=== PATIENT | female | born 1950 | race Caucasian/White ===

== ENCOUNTER → 2016-06-20 | Outpatient (CLI) | payer BC ==
--- NOTE | 2016-06-21 09:59 | CR ---
EXAM DATE: 06/20/16 PATIENT'S AGE: 66 Patient: SANDY MIN Facility: [place], [place] Site . Site : 1950 Study: XRay Extremity Right [id number]/24/2017 11:31:46 AM Ordering Physician: Kristen Henriquez Final Report: HISTORY: Pain in right hip. Findings: AP and frogleg views of the pelvis demonstrates marked decreased joint space of the right hip with acetabular sclerosis and spurring. Spurring is seen off the right femoral head as well. Left hip joint space appears preserved. No acute fracture or dislocation. Impression: Moderate to marked degenerative changes of the right hip. Dictated by Lavinia Rosa MD @ Jun 21 2016 12:45AM (Electronic Signature) Report Signed by Proxy and Original Signed Document filed in the Medical Record. AMISH
== END ==
LOC: MW.CHORTHO 07:37
PROVIDERS: ATTEND Orthopaedic Surgery
DX: M25.551 Pain in right hip (principal)
CPT/HCPCS: 73502-26-RT; 73502-RT

== ENCOUNTER 2016-09-19 09:19 | Inpatient (IN) | payer BC ==
[~2016-09-19 09:19] MED LIST: Sodium Chloride 0.9% 10 ML Syringe FLUSH PRN; Sodium Chloride 0.9% 2.5 ML Syringe FLUSH PRN; ceFAZolin 2 GM in Premix Bag 1 BAG IV ONE
[2016-09-19] MEDS: Lactated Ringers 1,000 ML IV SCH ×2 (10:49→20:00)
[2016-09-19] MEDS ORDERED: Lidocaine 2% 5 ML SDV ONE (11:34)
[2016-09-19] MEDS ORDERED: ePHEDrine 50 MG/ML SDV ONE (11:35)
[2016-09-19] MEDS ORDERED: fentaNYL 250 MCG/5 ML SDV ONE (11:35)
[2016-09-19] MEDS ORDERED: Midazolam 1 MG/ML 2 ML SDV ONE (11:35)
[2016-09-19] MEDS ORDERED: Neostigmine Methylsulfate 1 MG/ML 5 ML Syringe ONE (11:35)
[2016-09-19] MEDS ORDERED: Ondansetron 4 MG/2 ML SDV ONE (11:35)
[2016-09-19] MEDS ORDERED: Propofol 200 MG/20 ML SDV ONE ×2 (11:35→14:45)
[2016-09-19] MEDS ORDERED: fentaNYL 100 MCG/2 ML SDV ONE (11:38)
--- NOTE | 2016-09-19 12:06 | PCM.PREANE ---
Preanesthetic Assessment - Procedure Proposed Procedure: Right hip arthroplasty - Anesthesia/Transfusion/Family Hx Anesthesia History: Prior Anesthesia Without Reaction Family History of Anesthesia Reaction: No Transfusion History: No Prior Transfusion(s) Intubation History: Unknown - Review of Systems General: No Symptoms Pulmonary: No Symptoms Cardiovascular: Other (HTN - treated with metoprolol and lisinopril) Gastrointestinal: No Symptoms Neurological: Gait Disturbance (due to pain in right hip) Other: Reports: None - Physical Assessment NPO Status Date: 09/18/16 NPO Status Time: 23:00 O2 Sat by Pulse Oximetry: 96 Respiratory Rate: 16 Vital Signs: Last Vital Signs Temp 98.4 F 09/19/16 10:47 Pulse 57 L 09/19/16 10:47 Resp 16 09/19/16 10:47 BP 147/66 H 09/19/16 10:47 Pulse Ox 96 09/19/16 10:47 Height: 5 ft 6 in Weight: 230 lb ASA Class: 3 Mental Status: Alert & Oriented x3 Airway Class: Mallampati = 1 Dentition: Reports: Normal Dentition, [place](s) (uppers) Thyro-Mental Finger Breadths: 3 Mouth Opening Finger Breadths: 3 ROM/Head Extension: Full Lungs: Clear to Auscultation, Normal Respiratory Effort Cardiovascular: Regular Rate, Regular Rhythm, No Murmurs - Lab Values: Laboratory Last Values Blood Type AB POSITIVE 09/19/16 10:47 Antibody Screen NEGATIVE 09/19/16 10:47 - Allergies Allergies/Adverse Reactions: Allergies Allergy/AdvReac Type Severity Reaction Status Date / Time fluconazole [From Diflucan] Allergy Hives Verified 06/28/13 17:11 - Blood Blood Available: Yes Product(s) Available: PRBC (T and S) - Anesthesia Plan Pre-Op Medication Ordered: None Beta Marcella: Metoprolol Med Last Dose Date: 09/19/16 Med Last Dose Time: 08:00 - Acknowledgements Anesthesia Type Planned: Spinal (with attendant sedation; possible LMA general) Pt an Appropriate Candidate for the Planned Anesthesia: Yes Alternatives and Risks of Anesthesia Discussed w Pt/Guardian: Yes Pt/Guardian Understands and Agrees with Anesthesia Plan: Yes Additional Comments: family members present with discussion and exam. 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: Musculoskeletal History: Reports: Arthritis, Back Pain, Chronic Other Musculoskeletal History: jani hip pain Endocrine/Metabolic History: Reports: Obesity/BMI 30+ - Past Surgical History Head Surgeries/Procedures: Reports: None HEENT Surgical History: Reports: Oral Surgery Other HEENT Surgeries/Procedures: wisdom teeth extraction Musculoskeletal Surgical History: Reports: Other (See Below) Other Musculoskeletal Surgeries/Procedures:: nodule removed from left thumb - SUBSTANCE USE Smoking Status *Q: Never Smoker Second Hand Smoke Exposure: No Days Per Week of Alcohol Use: 2 Number of Drinks Per Day: 1 Total Drinks Per Week: 2 Recreational Drug Use History: No - HOME MEDS Home Medications: Home Meds Calcium Carbonate [Calcium] 1 tab PO DAILY 09/14/16 [History] Lisinopril/Hydrochlorothiazide [Lisinopril-Hctz 20-25 mg Tab] 1 tab PO DAILY [History] Metoprolol Succinate 50 mg PO DAILY 09/14/16 [History] [place]-3/DHA/Epa/Fish Oil [[place]-3 Fish Oil 1,000 MG Sfgl] 1 tab PO DAILY [History] traMADol HCl [Tramadol HCl] 50 mg PO ASDIRECTED PRN 09/14/16 [History] - CURRENT (IN HOUSE) MEDS Current Meds: Current Medications Lactated Ringer's (Ringers, Lactated) 1,000 mls @ 125 mls/hr IV ASDIRECTED FILI Last Admin: 09/19/16 10:49 Dose: 125 mls/hr Sodium Chloride (Saline Flush) 10 ml FLUSH ASDIRECTED PRN PRN Reason: Keep Vein Open Sodium Chloride (Saline Flush) 2.5 ml FLUSH ASDIRECTED PRN PRN Reason: Keep Vein Open Discontinued Medications Ephedrine Sulfate (Ephedrine Sulfate) Confirm Administered Dose 50 mg .ROUTE .STK-MED ONE Stop: 09/19/16 11:36 Fentanyl (Sublimaze) Confirm Administered Dose 250 mcg .ROUTE .STK-MED ONE Stop: 09/19/16 11:36 Fentanyl (Sublimaze) Confirm Administered Dose 100 mcg .ROUTE .STK-MED ONE Stop: 09/19/16 11:39 Glycopyrrolate () Confirm Administered Dose 1 mg .ROUTE .STK-MED ONE Stop: 09/19/16 11:36 Cefazolin Sodium/Dextrose 2 gm (/ Premix) 50 mls @ 100 mls/hr IV ONETIME ONE Stop: 09/19/16 09:29 Lidocaine (Xylocaine-Mpf 2%) Confirm Administered Dose 10 ml .ROUTE .STK-MED ONE Stop: 09/19/16 11:35 Midazolam HCl (Versed 1 Mg/Ml) Confirm Administered Dose 2 mg .ROUTE .STK-MED ONE Stop: 09/19/16 11:36 Neostigmine Methylsulfate (Neostigmine) Confirm Administered Dose 5 mg .ROUTE .STK-MED ONE Stop: 09/19/16 11:36 Ondansetron HCl (Zofran) Confirm Administered Dose 4 mg .ROUTE .STK-MED ONE Stop: 09/19/16 11:36 Propofol (Diprivan 20 Ml) Confirm Administered Dose 400 mg .ROUTE .STK-MED ONE Stop: 09/19/16 11:36 Rocuronium [place] (Zemuron) Confirm Administered Dose 50 mg .ROUTE .STK-MED ONE Stop: 09/19/16 11:36 Tranexamic Acid (Cyklokapron) Confirm Administered Dose 2,000 mg .ROUTE .STK- MED ONE Stop: 09/16/16 12:48
[2016-09-19] MEDS ORDERED: Dermabond Prineo 1 Tube TOP ONE (14:56)
--- NOTE | 2016-09-19 15:41 | PCM.OPNOTE ---
- General Post-Op/Procedure Note Date of Surgery/Procedure: 09/19/16 Operative Procedure(s): right anterior total hip arthroplasty Findings: severe OA Pre Op Diagnosis: right hip osteoarthritis Post-Op Diagnosis: same Anesthesia Technique: General ET Tube, Spinal Primary Surgeon: Aram Henriquez [employer] Superintendent: Charlotte Thomson Pathology: femoral head EBL in mLs: 500 Complications: none Condition: Good
[2016-09-19] MEDS ORDERED: Aluminum Hydroxide/Magnesium Hydroxide/Simethicone Susp 30 ML Cup PO PRN (15:58)
[2016-09-19] MEDS ORDERED: Bisacodyl 10 MG Supp RECTAL PRN (15:58)
[2016-09-19] MEDS ORDERED: diphenhydrAMINE 25 MG Cap PO PRN (15:58)
[2016-09-19] MEDS: Ondansetron 4 MG/2 ML SDV IV PRN ×2 (16:33→22:26)
--- NOTE | 2016-09-19 16:50 | CR ---
EXAMINATION: Right hip HISTORY: SIMONE COMPARISON: 06/20/2016 TECHNIQUE: 3 fluoroscopic images provided FINDINGS/IMPRESSION: Operative control films demonstrate placement of a right total hip hardware in good position and alignment.
[2016-09-19] MEDS: Acetaminophen/HYDROcodone 325-5 MG Tab PO PRN ×2 (17:49→22:25)
[2016-09-19] MEDS: Morphine 10 MG/ML Syringe IVPUSH PRN ×2 (18:00→20:40)
[2016-09-19] MEDS: oxyCODONE ER 20 MG TAB.ER PO PRN (19:58)
[2016-09-19] MEDS: Docusate Sodium 100 MG Cap PO SCH (20:41)
[2016-09-19] MEDS: ceFAZolin 2 GM in Premix Bag 1 BAG IV SCH (20:45)
[2016-09-19] MEDS ORDERED: Promethazine 25 MG/ML SDV ONE (20:51)
[2016-09-19] MEDS: Promethazine 25 MG/ML SDV IM PRN (20:54)
[2016-09-19] MEDS ORDERED: Diazepam 2 MG Tab PO ONE (21:43)
[2016-09-20] MEDS: Acetaminophen/HYDROcodone 325-5 MG Tab PO PRN ×5 (03:10→21:56)
[2016-09-20] MEDS: Promethazine 25 MG/ML SDV IM PRN (03:27)
[2016-09-20] MEDS: Lactated Ringers 1,000 ML IV SCH (04:47)
[2016-09-20] MEDS: ceFAZolin 2 GM in Premix Bag 1 BAG IV SCH (04:48)
[2016-09-20] MEDS: Ondansetron 4 MG/2 ML SDV IV PRN ×2 (05:06→13:13)
--- NOTE | 2016-09-20 06:57 | PCM48HPAN ---
Post Anesthesia Note - EVALUATION WITHIN 48HRS OF ANESTHETIC Vital Signs in Normal Range: Yes Patient Participated in Evaluation: Yes Respiratory Function Stable: Yes Airway Patent: Yes Cardiovascular Function Stable: Yes Hydration Status Stable: Yes Pain Control Satisfactory: Yes Nausea and Vomiting Control Satisfactory: Yes Mental Status Recovered: Yes
--- NOTE | 2016-09-20 06:57 | PCM.POSTAN ---
POST ANESTHESIA ASSESSMENT - MENTAL STATUS Mental Status: Alert, Oriented - RESPIRATORY Respiratory Status: respiratory rate WNL, Airway Patent, O2 Saturation Stable - CARDIOVASCULAR CV Status: Pulse Rate WNL, Blood Pressure Stable - GASTROINTESTINAL GI Status: No Symptoms - POST OP HYDRATION Hydration Status: Adequate & Stable
--- NOTE | 2016-09-20 08:17 | PCM.SN ---
- Free Text/Narrative Note: subjective: She is doing well. has not ambulated yet. Hip pain is better before surgery. she has been having a lot of back pain with pain down her leg which has been most painful. He is tolerating oral well. her pain is now under control Objective: Afebrile, vital signs stable Dressing is clean/dry/intact with no drainage and there is minimal swelling in the thigh and distally He has normal sensation and motor distally with equal leg lengths. Hemoglobin is 10.4 Assessment/plan: postop day #1 right hip replacement - weightbearing as tolerated with physical therapy - Aspirin for DVT prophylaxis -to home when able. She has not had therapy yet and is having significant back pain and difficulty getting up..
[2016-09-20] MEDS ORDERED: Sodium Chloride 0.9% 2.5 ML Syringe FLUSH PRN (08:18)
[2016-09-20] MEDS ORDERED: Sodium Chloride 0.9% 10 ML Syringe FLUSH PRN (08:18)
[2016-09-20] MEDS: Fish Oil/Omega-3 Fatty Acids 1 Gm Cap PO SCH (08:48)
[2016-09-20] MEDS: Calcium Carbonate 500 MG Tab.Chew PO SCH (08:48)
[2016-09-20] MEDS: Metoprolol Succinate 50 MG Tab.ER PO SCH (08:48)
[2016-09-20] MEDS: Lisinopril 10 MG Tab PO SCH (08:49)
[2016-09-20] MEDS: Docusate Sodium 100 MG Cap PO SCH ×2 (08:49→20:36)
[2016-09-20] MEDS: Aspirin 325 MG Tab PO SCH ×2 (08:49→20:36)
[2016-09-20] MEDS: Hydrochlorothiazide 25 MG Tab PO SCH (08:49)
--- NOTE | 2016-09-20 12:45 | PCM.DCSUM1 ---
Discharge Summary - Hospital Course Free Text/Narrative:: patient is admitted for elective right hip replacement Brief History: patient is admitted for elective hip replacement due to failure of conservative treatment - Discharge Data Discharge Date: 09/20/16 Discharge Disposition: Home, Self-Care 01 Condition: Good - Patient Summary/Data Operative Procedure(s) Performed: right anterior total hip arthroplasty Consults: Consultations 09/19/16 15:57 PT Evaluation and Treatment [CONS] Routine Hospital Course: patient underwent uneventful total hip replacement. Postoperatively she was admitted to the floor her pain was controlled her diet was advanced. Her to stay in physical therapy with weightbearing as tolerated. Did well and was discharged home on postoperative day #1 - Patient Instructions Diet: Usual Diet as Tolerated Activity: Apply Ice, As Tolerated, Full Weight Bearing Driving: Do Not Drive Driving, Other: may drive in 2 weeks Showering/Bathing: May Shower Wound/Incision Care: Do NOT Change Dressing Notify Provider of: Fever, Swelling and Redness, Drainage - Discharge Plan Prescriptions/Med Rec: Hydrocodone/Acetaminophen [[place] 7.5-325 Tablet] 1 - 2 tab PO Q4HR PRN #60 tablet PRN Reason: Pain Aspirin [Aspirin EC] 325 mg PO BID #60 tablet. Docusate Sodium [Colace] 100 mg PO BID #30 cap Home Medications: Home Meds Calcium Carbonate [Calcium] 500 mg PO DAILY 09/14/16 [History] Lisinopril/Hydrochlorothiazide [Lisinopril-Hctz 20-25 mg Tab] 20 - 25 mg PO DAILY 09/14/16 [History] Metoprolol Succinate 50 mg PO DAILY 09/14/16 [History] [place]-3/DHA/Epa/Fish Oil [[place]-3 Fish Oil 1,000 MG Sfgl] 1,000 mg PO DAILY [History] traMADol HCl [Tramadol HCl] 50 mg PO Q6H PRN 09/14/16 [History] Aspirin [Aspirin EC] 325 mg PO BID #60 tablet. 09/20/16 [Rx] Docusate Sodium [Colace] 100 mg PO BID #30 cap 09/20/16 [Rx] Hydrocodone/Acetaminophen [[place] 7.5-325 Tablet] 1 - 2 tab PO Q4HR PRN #60 tablet 09/20/16 [Rx] Patient Handouts: Acetaminophen; Hydrocodone tablets or capsules, Aspirin, ASA oral tablets, Total Hip Replacement, Care After, [id number], Docusate capsules Referrals: Charlotte Thomson PA [Physician Diesel Motor Mechanic] - 09/29/16 9:30 am - Discharge Summary/Plan Comment DC Time >30 min.: No - Patient Data Vitals - Most Recent: Last Vital Signs Temp 36.6 C 09/20/16 08:00 Pulse 84 09/20/16 08:48 Resp 16 09/20/16 08:00 BP 112/63 09/20/16 08:49 Pulse Ox 96 09/20/16 08:00 Weight - Most Recent: 104.326 kg I&O - Last 24 hours: Intake & Output 09/19/16 09/20/16 09/20/16 22:59 06:59 14:59 Intake Total 3125 1650 Output Total 400 450 Balance 2725 1200 Lab Results - Last 24 hrs: Laboratory Results - last 24 hr 09/20/16 Range/Units 06:11 Hgb 10.4 L (12.0-16.0) g/dL Hct 29.9 L (36.0-46.0) % Med Orders - Current: Current Medications Hydrocodone Bitart/Acetaminophen ([place] 325-5 Mg) 1 - 2 tab PO Q4H PRN PRN Reason: Pain Last Admin: 09/20/16 08:49 Dose: 2 tab Al Hydroxide/Mg Hydroxide (Mag-Al Plus) 30 ml PO Q4H PRN PRN Reason: indigestion Aspirin (Aspirin) 325 mg PO BID [facility] Last Admin: 09/20/16 08:49 Dose: 325 mg Bisacodyl (Dulcolax) 10 mg RECTAL DAILY PRN PRN Reason: Constipation Calcium Carbonate/Glycine (Tums) 500 mg PO DAILY [facility] Last Admin: 09/20/16 08:48 Dose: 500 mg Diphenhydramine HCl (Benadryl) 25 - 50 mg PO Q6H PRN PRN Reason: Itching Docusate Sodium (Colace) 100 mg PO BID [facility] Last Admin: 09/20/16 08:49 Dose: 100 mg Fish Oil (Fish Oil) 1 gm PO DAILY [facility] Last Admin: 09/20/16 08:48 Dose: 1 gm Hydrochlorothiazide (Hydrochlorothiazide) 25 mg PO DAILY [facility] Last Admin: 09/20/16 08:49 Dose: 25 mg Lactated Ringer's (Ringers, Lactated) 1,000 mls @ 125 mls/hr IV ASDIRECTED [facility] Last Admin: 09/20/16 04:47 Dose: 125 mls/hr Lisinopril (Prinivil) 20 mg PO DAILY [facility] Last Admin: 09/20/16 08:49 Dose: 20 mg Metoprolol Succinate (Toprol Xl) 50 mg PO DAILY [facility] Last Admin: 09/20/16 08:48 Dose: 50 mg Morphine Sulfate (Morphine) 1 - 3 mg IVPUSH Q3H PRN PRN Reason: Pain Last Admin: 09/19/16 20:40 Dose: 3 mg Ondansetron HCl (Zofran) 4 mg IV Q6HR PRN PRN Reason: NAUSEA/VOMITING Last Admin: 09/20/16 05:06 Dose: 4 mg Oxycodone HCl (Oxycontin) 20 mg PO Q12HR PRN PRN Reason: Pain Last Admin: 09/19/16 19:58 Dose: 20 mg Promethazine HCl (Phenergan) 25 mg IM Q6H PRN PRN Reason: Nausea/Vomiting Last Admin: 09/20/16 03:27 Dose: 25 mg Sodium Chloride (Saline Flush) 10 ml FLUSH ASDIRECTED PRN PRN Reason: Keep Vein Open Sodium Chloride (Saline Flush) 2.5 ml FLUSH ASDIRECTED PRN PRN Reason: Keep Vein Open Sodium Chloride (Saline Flush) 10 ml FLUSH ASDIRECTED PRN PRN Reason: Keep Vein Open Sodium Chloride (Saline Flush) 2.5 ml FLUSH ASDIRECTED PRN PRN Reason: Keep Vein Open Discontinued Medications Diazepam (Valium) 2 mg PO ONETIME ONE Stop: 09/19/16 21:44 Last Admin: 09/19/16 23:11 Dose: 2 mg Ephedrine Sulfate (Ephedrine Sulfate) Confirm Administered Dose 50 mg .ROUTE .STK-MED ONE Stop: 09/19/16 11:36 Fentanyl (Sublimaze) Confirm Administered Dose 250 mcg .ROUTE .STK-MED ONE Stop: 09/19/16 11:36 Fentanyl (Sublimaze) Confirm Administered Dose 100 mcg .ROUTE .STK-MED ONE Stop: 09/19/16 11:39 Glycopyrrolate () Confirm Administered Dose 1 mg .ROUTE .STK-MED ONE Stop: 09/19/16 11:36 Cefazolin Sodium/Dextrose 2 gm (/ Premix) 50 mls @ 100 mls/hr IV ONETIME ONE Stop: 09/19/16 09:29 Last Admin: 09/19/16 16:46 Dose: Not Given Cefazolin Sodium/Dextrose 2 gm (/ Premix) 50 mls @ 100 mls/hr IV Q8H FILI Stop: 09/20/16 05:29 Last Admin: 09/20/16 04:48 Dose: 100 mls/hr Lidocaine (Xylocaine-Mpf 2%) Confirm Administered Dose 10 ml .ROUTE .STK-MED ONE Stop: 09/19/16 11:35 Midazolam HCl (Versed 1 Mg/Ml) Confirm Administered Dose 2 mg .ROUTE .STK-MED ONE Stop: 09/19/16 11:36 Neostigmine Methylsulfate (Neostigmine) Confirm Administered Dose 5 mg .ROUTE .STK-MED ONE Stop: 09/19/16 11:36 Non-Formulary Medication (Lisinopril/Hydrochlorothiazide [Lisinopril-Hctz 20-25 Mg Tab]) 20 - 25 mg PO DAILY [facility] Octyl Cyanoacrylate (Dermabond Pr[place]) 1 applic TOP .STK-MED ONE Stop: 09/19/16 14:57 Ondansetron HCl (Zofran) Confirm Administered Dose 4 mg .ROUTE .STK-MED ONE Stop: 09/19/16 11:36 Promethazine HCl (Phenergan) Confirm Administered Dose 25 mg .ROUTE .STK-MED ONE Stop: 09/19/16 20:52 Last Admin: 09/19/16 21:37 Dose: Not Given Propofol (Diprivan 20 Ml) Confirm Administered Dose 400 mg .ROUTE .STK-MED ONE Stop: 09/19/16 11:36 Propofol (Diprivan 20 Ml) Confirm Administered Dose 200 mg .ROUTE .STK-MED ONE Stop: 09/19/16 14:46 Rocuronium [place] (Zemuron) Confirm Administered Dose 50 mg .ROUTE .STK-MED ONE Stop: 09/19/16 11:36 Tranexamic Acid (Cyklokapron) Confirm Administered Dose 2,000 mg .ROUTE .STK- MED ONE Stop: 09/16/16 12:48 *Q Meaningful Use (DIS) - VTE *Q VTE Criteria *Q: - Stroke *Q Stroke Criteria *Q: - AMI *Q AMI Criteria *Q:
[2016-09-20] MEDS ORDERED: Sodium Chloride 0.9% 1,000 ML IV ONE (13:22)
[2016-09-21] MEDS: Acetaminophen/HYDROcodone 325-5 MG Tab PO PRN ×3 (02:01→12:50)
[2016-09-21] MEDS: Ondansetron 4 MG/2 ML SDV IV PRN (02:01)
--- NOTE | 2016-09-21 07:23 | PCM.SN ---
- Free Text/Narrative Note: subjective: She is doing well and ambulating well. Hip pain is better before surgery. She is tolerating oral well. her pain is now under control. She feels minimally symptomatic when her oxygen saturation is low. Objective: Afebrile, vital signs stable, oxygen saturation is high 90s on oxygen , mid 80s off oxygen Dressing is clean/dry/intact with no drainage and there is minimal swelling in the thigh and distally He has normal sensation and motor distally. Hemoglobin is 9.7 CXR: atelectasis Assessment/plan: postop day #2 right hip replacement, atelectasis with low oxygen saturation - weightbearing as tolerated with physical therapy - Aspirin for DVT prophylaxis - will try off oxygen this AM, I encouraged incentive spirometry, sitting and walking. She may require a nebulizer today to open up her airways. - to home when able and oxygen is stable
--- NOTE | 2016-09-21 09:45 | CR ---
EXAM DATE: 09/19/16 PATIENT'S AGE: 66 Patient: SANDY MIN Facility: [place], [place] Site . Site : 1950 Study: XRay Chest [id number]/25/2017 9:14:39 PM Ordering Physician: Kristen Henriquez Final Report: INDICATION: Low oxygen saturation. Hip surgery on 09/19/2016. COMPARISON: None. FINDINGS/IMPRESSION: Shallow inspiration. Mild bilateral perihilar lung stranding consistent with subsegmental atelectasis. Mild right diaphragm elevation. No pleural effusions. Upper normal heart size. Unremarkable pulmonary vasculature. Spinal and shoulder degenerative changes. Dictated by Amandeep Coronel MD @ 09/20/2016 9:17:27 PM Dictated by: Amanedep Coronel MD @ 09/20/2016 21:17:37 (Electronic Signature) Report Signed by Proxy. AMISH
--- NOTE | 2016-09-21 09:48 | OR ---
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 PREOPERATIVE DIAGNOSIS: Right hip osteoarthritis, severe. POSTOPERATIVE DIAGNOSIS: Right hip osteoarthritis, severe. OPERATION PERFORMED: Right anterior total hip arthroplasty. ANESTHESIA: Spinal and general. COMPLICATIONS: None. ESTIMATED BLOOD LOSS: 500 mL. SPECIMENS: Femoral head. COMPLICATIONS: None. IMPLANTS: Jerson Continuum trabecular metal shell with cluster holes, 54 mm outer diameter, one 6.5 x 30 mm length bone screw, Vicacit-E neutral liner, 36 mm inner diameter, Avenir Ryder hip stem standard uncemented size 4, BIOLOX delta ceramic femoral head 36 mm diameter, -3.5 neck length. INDICATIONS: The patient presented with severe hip osteoarthritis and wished to undergo total hip replacement. She understands the risks, benefits, complications of the procedure including, but not limited to infection, neurovascular injury, continued pain, DVT, PE, stroke, IA, , leg-length discrepancy, which she already has that leg longer and will be at least as long,dislocation, fraction and deep infection and she wished to proceed. ARLENE Thomson was instrumental in case with retracting, reducing the hip and closing. PROCEDURE IN DETAIL: The patient was seen in preoperative area. Operative site was marked. The patient was transferred to the operating room where spinal anesthetic was given. She was placed supine on the Summers table. General anesthesia was induced. Endotracheal tube was placed. Her legs were placed in the leg bars with narrow perineal post. Right hip was prepped and draped in a sterile fashion using alcohol followed by ChloraPrep. She received preoperative antibiotics Ancef and also 2 g of TXA. Formal time-out was taken identifying the correct patient, procedure, and extremity. A 12 cm incision starting just lateral to the ASIS going obliquely down the femur was made. Dissection was carried out down to subcutaneous tissues. Hemostasis was obtained. The fascia overlying the TFL was opened. The interval between TFL and sartorius and deep between the abductors and rectus was opened. The vastus lateralis fascia was opened and the anterior vessels were coagulated. A deep retractor was placed. The capsule was held and tagged with two FiberWires and deep retractors were placed and the neck was then cut from saddle region about 1 cm above the lesser trochanter and the head was removed. There was noted be severe osteoarthritis with large osteophytes and complete obliteration of the joint space. Anterior and posterior retractors were placed. The inferior capsule was released leaving the iliopsoas tendon and the remnants of the labrum and pulvinar were removed. The head measured about 48 to 49 mm, in sequential reaming from 47 up to 53 mm was made under fluoroscopic control, going superior medial, this had excellent fit and fill. The bed was planed to make sure the pelvis was level under fluoroscopy and then a continuum trabecular metal shell with cluster holes was placed 54 mm outer diameter and 10 degrees of anteversion and 40-45 degrees of abduction. This had excellent press fit. One straight superior bone screw was placed, there was noted be no uncovering of the metal component anteriorly, it was covered completely in the bone. One straight superior bone screw was placed after drilling and the wound was irrigated, and neutral liner was impacted. Attention was then paid to the femur. The femoral lift was placed. Leg was externally rotated, abducted, and extended. The medial capsule was released. Superior capsule obturator internus and piriformis were released. Central canal finder was utilized and the hip was broached up to size 4, trial with a size 3 that was slightly loose. It was trialed, we reduced and with printed overlay technique and a -3.5 neck length. This showed operative hip to be slightly longer than the nonoperative hip with equal offset. The hip was then dislocated. The neck was cut to just above the lesser trochanter, it was broached from a size 2, 3, and then 4 again, this sunk down to sitting about 1 to 2 mm above the cut which would bring the leg lengths to be equal. The final size 4 Avenir Ryder hip stem was impacted, this did unfortunately sat about 4 mm prouder than the broach, it was trial reduced at -3.5 neck length which showed equal offset and leg length to be slightly increased. The hip was then dislocated and -3.5 head was impacted and the hip was reduced. The wound was thoroughly irrigated. The tag sutures were tied together. The fascia closed with #1 Vicryl, the fat layer with #1 Vicryl, subcutaneous tissue with 2-0 STRATAFIX and the skin was closed with running 4-0 Monocryl, Dermabond tape and Aquacel dressing. The patient was extubated in the operative room and transferred to recovery room in stable condition. Sponge and needle counts were correct at the end of the case. There were no complications. PLAN: The patient will follow postop rehab protocol, taking aspirin for DVT prophylaxis. DANA RICHARDS /[id number]
[2016-09-21] MEDS: Fish Oil/Omega-3 Fatty Acids 1 Gm Cap PO SCH (09:50)
[2016-09-21] MEDS: Aspirin 325 MG Tab PO SCH (09:50)
[2016-09-21] MEDS: Metoprolol Succinate 50 MG Tab.ER PO SCH (09:52)
[2016-09-21] MEDS: Hydrochlorothiazide 25 MG Tab PO SCH (09:53)
[2016-09-21] MEDS: Lisinopril 10 MG Tab PO SCH (09:53)
[2016-09-21] MEDS: Docusate Sodium 100 MG Cap PO SCH (09:53)
[2016-09-21] MEDS: Calcium Carbonate 500 MG Tab.Chew PO SCH (09:54)
[2016-09-21] MEDS: oxyCODONE ER 20 MG TAB.ER PO PRN (09:54)
[2016-09-21 12:16] VITALS: BP 99/43
[2016-09-21] MEDS ORDERED: Ondansetron 8 MG Tab.DIS PO ONE (14:38)
== END 2016-09-21 14:45 | disposition home or self-care (01) | DRG 301 ==
LOC: MW.MS 09:19
PROVIDERS: ADMIT Orthopaedic Surgery; ATTEND Orthopaedic Surgery
PROC: 0SR903A Replacement of Right Hip Joint with Ceramic Synthetic Substitute, Uncemented, Open Approach (ICD-10-PCS; principal; 2016-09-19)
DX: M16.11 Unilateral primary osteoarthritis, right hip (principal); I10 Essential (primary) hypertension; Z79.899 Other long term (current) drug therapy; Z88.8 Allergy status to other drugs, medicaments and biological substances
CPT/HCPCS: 01214; 36415; 71010; 71010-26; 76000; 76000-26; 85014; 85018; 86850; 86900; 86901; 88304; 88311; 97110-GP; 97161-GP; 97530-GP; A9270-GY; C1713; C1776; J0690; J2250; J2270; J2405; J2550; J2704; J3010; J7040; J7120